=== PATIENT | male | born 1980 | race Caucasian/White ===

== ENCOUNTER 2020-07-22 11:00 | Day surgery (SDC) | payer OTHER, SELFPAY ==
[2020-07-22] VITALS (9 sets, daily range): BP systolic 112–154; BP diastolic 75–104; PULSE 77–102; RESP 12–20; TEMP 36.4–36.8; O2SAT 98–100
--- NOTE | ~2020-07-22 | CT_ITS ---
EXAMINATION: CT abdomen pelvis w con DATE: 07/22/2020 12:15 INDICATION: Right-sided abdominal pain. TECHNIQUE: Computed tomography (CT) of the abdomen and pelvis was performed with 100 mL Omnipaque 350 intravenous contrast. Automated exposure control and iterative reconstruction technique were employe d. The dose-length product was 398.01 mGy-cm. COMPARISON: None. FINDINGS: The visualized portions of the lung bases demonstrate mild atelectasis. No pleural effusion . The heart size is normal. No pericardial effusion. The liver, gallbladder, spleen, pancreas, adrena l glands, and left kidney are normal. There is a 7 mm cyst in right kidney. The appendix is fluid-cristhian led and dilated to 12 mm with surrounding fat stranding, consistent with appendicitis. There is trace ascites in the right paracolic gutter. There are no pathologically enlarged lymph nodes. There is mi ld lumbar spondylosis. IMPRESSION: 1. Acute appendicitis. I called this result to Dr. Flores. Reviewed, dictated and finalized at location A. [employer]PECT[employer]
[2020-07-22 11:45] LABS: Basophils Percent Auto 0.2 % (0.2-1.2); Eosinophils Absolute Auto 0.4 K/mm3 (0-0.3); Eosinophils Percent Auto 3.4 % (0-4.4); Hemoglobin 15.2 g/dL (14.0-18.0); Immature Granulocyte Absolute 0.03 K/mm3 (0.00-0.031); Immature Granulocyte Percent A 0.3 % (0-0.5); Lymphocytes Absolute Auto 2.03 K/mm3 (0.9-3.2); Lymphocytes Percent Auto 18.4 % (18.3-44.2); Mean Corpuscular HGB Conc 33.8 g/dl (32-36); Mean Corpuscular Hemoglobin 31.9 pg (26-34); Mean Corpuscular Volume 94.5 fl (80-100); Mean Platelet Volume 9.7 fl (7.4-10.4); Monocytes Absolute Auto 0.8 K/mm3 (0.1-0.6); Monocytes Percent Auto 7.6 % (2.6-8.5); Neutrophils Absolute Auto 7.8 K/mm3 (1.3-6.7); Neutrophils Percent Auto 70.1 % (45.5-73.1); Platelet Count Result 233 k/mm3 (150-375); Red Blood Count 4.76 M/mm3 (4.6-6.20); Red Cell Distribution Width 12.7 % (11.5-14.5)
[2020-07-22 11:48] LABS: Add Urine Microscopic? NO; Appearance Urine Clear (Clear); Bilirubin Urine Negative (Negative); Blood Urine Negative (Negative); Color Urine Yellow (Yellow); Glucose Urine UA Negative (Negative); Ketones Urine Negative (Negative); Leukocyte Esterase Ur Negative LEU/UL (Negative); Nitrate Urine Negative (Negative); Protein Urine Negative (Negative); Specific Grav Ur 1.012 (1.001-1.035); Urobilinogen Urine Negative mg/dL (<2.0)
[2020-07-22 11:57] LABS: Alanine Aminotransferase 20 U/L (4-50); Albumin Level 4.3 g/dL (3.5-5.1); Alkaline Phosphatase 91 U/L (38-126); Anion Gap 3 mmol/L (8-16); Aspartate Amino Transferase 22 U/L (17-59); Blood Urea Nitrogen 12 mg/dL (9-20); Calcium 9.6 mg/dL (8.4-10.2); Carbon Dioxide 30 mmol/L (22-30); Chloride 104 mmol/L (98-107); Estimated CRCL calculation 72 ml/min; Estimated Glomerular Filt Rate > 60; Glucose 84 mg/dL (75-110); Lipase 34 U/L (23-300); Potassium 4.2 mmol/L (3.4-5.0); Sodium 137 mmol/L (137-145)
--- NOTE | 2020-07-22 12:06 | ED.GENADULT ---
HPI - General Adult General Chief complaint: Abdominal Pain Stated complaint: ABD pain x 4 days Time Seen by Provider: 07/22/20 11:10 Source: patient History of Present Illness HPI narrative: Patient is a 40 y/o male complaining of right lower abdominal pain starting 4 days ago. He describes his pain as sharp. He states that taking Ibuprofen helps slightly. He also states that raising his leg aggravates his pain. There is no pain radiation. He has no vomiting, diarrhea, dysuria or hematuria. Related Data Allergies Allergy/AdvReac Type Severity Reaction Status Date / Time No Known Allergies Allergy Verified 07/22/20 13:42 Review of Systems Constitutional: Constitutional: Denies chills, Denies fever(s), Denies headache(s) and Denies weakness Eyes: Eyes: Denies blurry vision ENT: Denies headache(s) and Denies neck pain Cardiovascular: Cardiovascular: Denies chest pain and Denies dyspnea Respiratory: Respiratory: Denies cough and Denies dyspnea Gastrointestinal: Gastrointestinal: Reports abdominal pain, Denies diarrhea, Denies nausea and Denies vomiting Genitourinary: Genitourinary: Denies hematuria and Denies dysuria Musculoskeletal: Musculoskeletal: Denies back pain and Denies neck pain Neurologic: Denies headache(s) and Denies weakness PMFSH Past Medical History Medical History No pertinent past medical history Surgical History Surgical History History of vasectomy Family History Family History Other No family history of disorders Social History Social History Social History: Wishes to be a full code. 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 Gender identity (if verbalized by the patient): Male Sexual Orientation (if Verbalized by the Patient): Straight or Heterosexual Exam Const: General: no acute distress and well developed Orientation/consciousness: oriented to person, oriented to place, oriented to time and patient oriented x3 HENMT: Head: normocephalic Ears: external ears normal General nose exam: Normal external nose present Eyes: General: appearance normal, both eyes and all related structures Conjunctivae: conjunctivae normal Neck: Neck: normal visual inspection and full ROM Chest: Chest palpation & inspection: normal inspection of the chest and no tenderness Resp: Effort & Inspection: normal respiratory effort Auscultation: clear to auscultation bilaterally Cardio: Rate: regular rate Rhythm: regular rhythm GI: GI Palp: Yes abdominal tenderness (right lower abdomen) and Yes Soft to palpation Skin: General skin exam: normal color and turgor normal Neuro: General: oriented to person, oriented to place, oriented to time and patient oriented x3 Cognition (Neuro): normal cognition Extrem: General: normal to inspection, full ROM and no pedal edema Psych: Appearance: grossly normal Mental Status: mental status grossly normal Affect: normal affect Course Consultations Consultation #1: Discussed with Dr. Abad, who recommends IV antibiotics do surgery soon. Date: 07/22/20 Time: 12:24 Vital Signs Vital signs: Vital Signs Temperature 36.5 C 07/22/20 11:13 Pulse Rate 94 07/22/20 11:13 Respiratory Rate 20 07/22/20 11:13 Blood Pressure 143/104 H 07/22/20 11:13 Pulse Oximetry 100 07/22/20 11:13 Temperature 36.4 C L 07/22/20 15:41 Pulse Rate 81 07/22/20 17:05 Respirato
[2020-07-22] MEDS: KETOROLAC 30 MG/ML VIAL (*BKC) IV PUSH (12:26)
[2020-07-22] MEDS: SODIUM CHLORIDE 0.9% IV 1,000 ML 999 ML IV CONT (12:26)
--- NOTE | 2020-07-22 13:19 | PM.IMHP ---
H&P: HPI History of Present Illness Date/Time: 07/22/20 13:19 Chief Complaint: RLQ abdominal pain Narrative: Jori Biggs is a 40 year old male who presented to the ER with complaints of right lower quadrant abdominal pain. He reports that he gradually started having mild pain evening, 4 days ago. He noticed that into Wednesday, he started running a low grade fever of 99F, which has been intermittent since then. He reports the abdominal pain improved slightly over the weekend, but has become more severe in the past 24 hours. He reports movement and lifting his right leg aggravates his pain. Denies nausea or vomiting. Reports having a poor appetite over the past few days. Due to the continued abdominal pain, he presented to the ER for further evaluation. CT scan of the abdomen and pelvis showed a fluid-filled appendix measuring up to 12 mm in diameter with surrounding fat stranding, and trace ascites in the right paracolic gutter. Labs showed mild leukocytosis. The ER physician consulted our service for surgical evaluation of the acute appendicitis. The patient is now seen in the ER. He reports his abdominal pain is very mild when at rest and not moving. Afebrile in the ER. Denies a history of abdominal surgery. Denies any cough, congestion, sore throat, headache, or loss of taste or smell. He was tested yesterday for COVID due to his low grade fever, and was negative. Review of Systems Constitutional: Constitutional: Reports as per HPI, Reports chills, Denies fatigue, Reports fever(s), Denies headache(s) and Reports poor appetite Eyes: Eyes: Reports no additional eye complaints and Denies change in vision ENT: Reports Normal hearing present, Denies dizziness and Denies headache(s) Cardiovascular: Cardiovascular: Reports no additional cardiovascular complaints, Denies chest pain, Denies syncope and Denies leg edema Respiratory: Respiratory: Reports no additional respiratory complaints, Denies cough, Denies dyspnea and Denies wheezing Gastrointestinal: Gastrointestinal: Reports as per HPI, Reports no additional gastrointestinal complaints, Reports abdominal pain, Denies bloating, Denies change in bowel habits, Denies change in stool character, Denies constipation, Denies nausea and Denies vomiting Genitourinary: Genitourinary: Reports no additional male genitourinary complaints, Denies hematuria and Denies dysuria Musculoskeletal: Musculoskeletal: Reports no additional musculoskeletal complaints, Denies deformity, Denies joint swelling, Denies radiating pain into limb and Denies tingling Integumentary/Breasts: Skin/Breast: Denies lesions and Denies wounds Neurologic: Reports system reviewed and no additional complaints, except as documented, Reports Normal hearing present, Denies dizziness, Denies syncope, Denies tingling and Denies tremor(s) Psychiatric: Psychiatric: Denies anxiety and Denies depression [facility] Past Medical History Medical History No pertinent past medical history Surgical History Surgical History History of vasectomy Family History Family History Other No family history of disorders Social History Social History Social History: Wishes to be a full code. 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
[2020-07-22] MEDS: LACTATED RINGERS 1,000 ML 30 ML IV CONT ×2 (13:40→15:41)
--- NOTE | 2020-07-22 13:43 | WPDANESEPPF ---
Anes - Initial Pre Proc Eval Procedure: Operation Date: 07/22/20 14:30 Proposed Procedures p Laparoscopic Appendectomy - Nate Abad DO Date/Time: 07/22/20 13:43 Surgeon: Nate Abad DO Pre Op Diagnosis: ABD pain x 4 days Patient Data Age: 40 Gender: M Height: 5 ft 6 in Weight: 81.6 kg Last Vital Signs Temp 97.7 F 07/22/20 11:13 Pulse 94 07/22/20 11:13 Resp 20 07/22/20 11:13 BP 143/104 H 07/22/20 11:13 Pulse Ox 100 07/22/20 11:13 Allergies Allergy/AdvReac Type Severity Reaction Status Date / Time No Known Allergies Allergy Verified 07/22/20 13:42 Home Medications Medication Instructions Recorded Confirmed Type No Home Medications 07/22/20 07/22/20 History Laboratory Tests 07/22/20 07/22/20 07/22/20 11:27 11:27 11:27 WBC 11.0 K/mm3 H K/mm3 (4.5-10.0) RBC 4.76 M/mm3 M/mm3 (4.6-6.20) Hgb 15.2 g/dL g/dL (14.0-18.0) Hct 45.0 % % (42.0-52.0) MCV 94.5 fl fl (80-100) MCH 31.9 pg pg (26-34) MCHC 33.8 g/dl g/dl (32-36) RDW 12.7 % % (11.5-14.5) Plt Count 233 k/mm3 k/mm3 (150-375) MPV 9.7 fl fl (7.4-10.4) Immature Gran % (Auto) 0.3 % % (0-0.5) Neut % (Auto) 70.1 % % (45.5-73.1) Lymph % (Auto) 18.4 % % (18.3-44.2) [place] % (Auto) 7.6 % % (2.6-8.5) Eos % (Auto) 3.4 % % (0-4.4) Baso % (Auto) 0.2 % % (0.2-1.2) Lymph # (Auto) 2.03 K/mm3 K/mm3 (0.9-3.2) [place]ies # (Auto) 0.8 K/mm3 H K/mm3 (0.1-0.6) Eos # (Auto) 0.4 K/mm3 H K/mm3 (0-0.3) Baso # (Auto) 0.0 K/mm3 K/mm3 (0.0-0.1) Abs Immat Gran (auto) 0.03 K/mm3 K/mm3 (0.00-0.031) Absolute Neuts (auto) 7.8 K/mm3 H K/mm3 (1.3-6.7) Absolute Nucleated RBC 0.0 K/mm3 K/mm3 (0.0-0.012) Nucleated RBC % 0.0 % % (0.0-0.2) Sodium 137 mmol/L mmol/L (137-145) Potassium 4.2 mmol/L mmol/L (3.4-5.0) Chloride 104 mmol/L mmol/L (98-107) Carbon Dioxide 30 mmol/L mmol/L (22-30) Anion Gap 3 mmol/L L mmol/L (8-16) BUN 12 mg/dL mg/dL (9-20) Creatinine 1.10 mg/dL mg/dL (0.7-1.3) Estim Creat Clear Calc 72 ml/min ml/min Estimated GFR > 60 (59 - ) Glucose 84 mg/dL mg/dL (75-110) Calcium 9.6 mg/dL mg/dL (8.4-10.2) Total Bilirubin 1.0 mg/dL mg/dL (0.2-1.3) AST 22 U/L U/L (17-59) ALT 20 U/L U/L (4-50) Alkaline Phosphatase 91 U/L U/L (38-126) Total Protein 8.0 g/dL g/dL (6.3-8.2) Albumin 4.3 g/dL g/dL (3.5-5.1) Lipase 34 U/L U/L (23-300) Urine Color Yellow (Yellow) Urine Appearance Clear (Clear) Urine pH 6.0 (5.0-9.0) Ur Specific [place] 1.012 (1.001-1.035) Urine Protein Negative mg/dL mg/dL (Negative) Urine Glucose (UA) Negative mg/dL mg/dL (Negative) Urine Ketones Negative mg/dL mg/dL (Negative) Ur Blood (Man) Negative (Negative) Urine Nitrate Negative (Negative) Urine Bilirubin Negative (Negative) Urine Urobilinogen Negative mg/dL mg/dL (<2.0) Leukocyte Esterase Rfl Negative DEVIKA/UL DEVIKA/UL (Negative) Patient hx anesthesia problems: none Family hx anesthesia problems: none PMFSH Past Medical History Medical History No pertinent past medical history Surgical History Surgical History History of vasectomy Family History Family History Other No family history of disorders Social History Social History (Reviewed 07/22/20 @ 13:37 by Sarah Chacon
--- NOTE | 2020-07-22 14:02 | WPDHPUPDATE1 ---
History and Physical Update Update Date/Time: 07/22/20 14:02 History and Physical has been reviewed, including an updated exam of the patient. There are NO changes in the patient's condition. Risks, benefits, and alternatives have been discussed and questions answered. Patient agrees to proceed with procedure.
[2020-07-22] MEDS: BUPIVACAINE/EPINEPHRINE 0.5% 30 ML VIAL INFILTRATE (15:17)
--- NOTE | 2020-07-22 15:31 | PM.PROC ---
Procedure Note - Detailed Date of procedure: 07/22/20 Pre-op diagnosis: Acute appendicitis Post-op diagnosis: same Procedure performed: Laparoscopic Appendectomy Description of procedure: Procedure as well as risks, benefits, and alternatives were explained to the patient. The patient agreed to proceed. Written consent was obtained and placed in chart prior to procedure. The patient was brought back to surgical suite. He was placed supine on operating table. Time-out was done to confirm the patient and procedure. The patient was then intubated by the Anesthesia Department. His abdomen was prepped and draped in sterile fashion using chlorhexidine prep. A 12 mm incision was made at the inferior portion of the umbilicus. Blunt dissection was carried out down to the linea alba. The linea alba was then incised using a 15 blade scalpel. Then bluntly entered into the peritoneal cavity. A 12 mm trocar was then inserted, and carbon dioxide insufflation was used to create a pneumoperitoneum. The camera was inserted and the abdomen was inspected. No immediate abnormalities were identified. The patient was then placed in slight Trendelenburg position and rotated to the left. A 5 mm incision was made in the suprapubic region in midline and a 5 mm trocar was inserted under direct visualization. A 5 mm incision was made in the left lower quadrant and a 5 mm trocar was inserted under direct visualization. The right lower quadrant was carefully inspected. The cecum was identified and then this was traced back to the appendix. The appendix was identified and grasped at the mesoappendix and lifted anteriorly. Careful blunt dissection was carried out at the base of the appendix through the mesoappendix using a [place] grasper. An Endo-AKANKSHA 45 mm blue load stapler was then advanced across the base of the appendix and clamped and fired. A white reload was then clamped across the mesoappendix and fired. This freed up our appendix completely. It was then placed in an EndoCatch bag and removed through the left lower quadrant port. The staple lines were then inspected. Hemostasis appeared adequate and the staple lines appeared secure. The area was then irrigated with sterile saline. The pelvis was then carefully inspected and irrigated with sterile saline as well and the remainder of the abdomen was carefully inspected. The patient was then flattened out in bed. One final inspection was made around the abdominal cavity and no other abnormalities were seen. The ports were then removed under direct visualization. The camera was removed and the pneumoperitoneum was released. The fascia of the umbilical incision was reapproximated using an 0 Vicryl [id number]-eitim suture. 0.5% bupivacaine with epinephrine was infiltrated locally around each of the incisions. The skin of the incisions was then approximated using 4-0 Monocryl subcuticular suture and Exofin glue was applied on top. The patient was then awakened from anesthesia, extubated, and transferred to Recovery. Anesthesia: GETA and local (0.5% bupivicaine with epi) Surgeon: Nate Abad DO Estimated blood loss (mL): 20 Pathology: yes (Appendix) Complications: No immediate complications Condition: stable Disposition: same day Findings: This is a 40-year-old man who presented to the emergency department today with right lower quadrant pain that began 4 days ago. His pain has progressively worst and he was also feeling some fevers and chills. He has never experienced pains like this in the past. In the emergency department he was noted to have an elevated white blood count and CT showed evidence of acute appendicitis. Discussions were made with the patient about treatment options and decision was made to proceed with laparoscopic appendectomy, possible open. Laparoscopic appendectomy was performed. The appendix appeared dilated and indurated. There is no clear evidence of perforation but the appendix did ap
[2020-07-22] MEDS: fentaNYL CITRATE INJ (*CRX) 100 MCG/2 ML VIAL 25 MCG IV PUSH (15:50)
--- NOTE | 2020-07-22 16:17 | SUR.PHASEI ---
02 removed at 1555.
[2020-07-22] MEDS: oxyCODONE HCL (*CRX) 5 MG TAB IR PO (16:39)
== END 2020-07-22 17:10 | disposition home or self-care (01) ==
LOC: ANHED 12:36 → ANHSURGERY 12:57
PROVIDERS: Emergency Provider Emergency Medicine; Visit Provider Surgery
PROC: 0DTJ4ZZ Resection of Appendix, Percutaneous Endoscopic Approach (ICD-10-PCS; CPT 44970; principal; 2020-07-22 14:30)
DX: K35.32 Acute appendicitis with perforation, localized peritonitis, and gangrene, without abscess (principal); F17.210 Nicotine dependence, cigarettes, uncomplicated
CPT/HCPCS: 44970; 36415; 74177; 80053; 81003; 83690; 85025; 88304; 96365; 96375; 99285; A9270; J0330; J1100; J1885; J2250; J2405; J2543; J2704; J3010; J7030; J7120; Q9967

== ENCOUNTER 2022-11-05 08:07 | Emergency (ER) | payer BC, SELFPAY ==
--- NOTE | 2022-11-05 08:13 | ED.SKABFB ---
HPI - Skin/Abscess/Foreign Bdy General Chief complaint: Skin/Abscess/Foreign Body Stated complaint: Hives all over Time Seen by Provider: 11/05/22 08:14 Source: patient Mode of arrival: ambulatory Limitations: no limitations History of Present Illness HPI narrative: Jori is a 42-year-old male patient presenting to the clinic today with complaints of hives all over his body times 2-3 weeks. He reports no known environmental changes, lotions, shampoos, detergents, foods, or medications. He reports he thought he had a dental infection approximately 1 week ago and thought this could be causing the rash. States the rash is raised and very itchy. He denies any shortness of breath, drooling, difficulty breathing, difficulty swallowing, or chest pain. Related Data Allergies Allergy/AdvReac Type Severity Reaction Status Date / Time No Known Allergies Allergy Verified 11/05/22 08:21 Review of Systems Review of Systems: Pertinent positives per HPI. Patient denies any fever, chills, headache, visual changes, dizziness, cough, runny nose, sore throat, shortness of breath, chest pain, palpitations, nausea, vomiting, diarrhea, constipation, abdominal pain, or any urinary issues. [facility] Past Medical History Medical History No pertinent past medical history Surgical History Surgical History History of laparoscopic appendectomy History of vasectomy Family History Family History Other No family history of disorders Social History Social History Social History: Wishes to be a full code. 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 There is no relevant family history pertinent to the patient complaint. Exam Narrative: General: Well-developed, well nourished, in no apparent distress Head: Normocephalic, atraumatic. Eyes: Pupils equally round and reactive to light bilaterally, EOM intact, sclera and conjunctive clear, no discharge, lids normal Ears: TMs intact and clear, ear canals clear, no drainage, grossly hearing normal. Nose: Nares patent, no discharge, no inflammation, no sinus tenderness. Mouth: Oropharynx without lesions or masses, poor dentition dentition, MMM. Redness and swelling to the left upper and right upper gums with tenderness to palpation Neck: Supple, trachea midline, no enlargement of anterior or posterior cervical nodes, no thyroid masses or goiter palpable. Cardio: Regular rate and rhythm, s1 and s2 normal, no murmur appreciated. Resp: Clear to auscultation bilaterally anteriorly and posteriorly, no rhonchi, rales, wheezing or rubs Integumentary: [place], warm, and dry, red, raised, itchy, wheeled like rash to arms, legs, and torso Course Course Emergency Course: Portions of this record may have been created with voice recognition software. Level of Care: Express Care Visit Vital Signs Vital signs: Vital signs reviewed MDM - Skin/Abscess/Foreign Bdy MDM Narrative Medical decision making narrative: At the time of visit patient is resting comfortably on exam table. I suspect patient has hives. Will give dexamethasone 10 mg IM in the
[2022-11-05 08:18] VITALS: BP 133/99; PULSE 88; RESP 16; TEMP 36.8; O2SAT 100
== END 2022-11-05 08:41 | disposition home or self-care (01) ==
PROVIDERS: Emergency Provider Nurse Practitioner Family; PCP Family Medicine Adolescent Medicine
DX: L50.9 Urticaria, unspecified (principal); K08.89 Other specified disorders of teeth and supporting structures; F17.210 Nicotine dependence, cigarettes, uncomplicated
CPT/HCPCS: 96372; 99213; G0463; J1100

== ENCOUNTER 2022-11-11 16:59 | Emergency (ER) | payer BC, SELFPAY ==
--- NOTE | 2022-11-11 17:06 | ED.SKABFB ---
HPI - Skin/Abscess/Foreign Bdy General Chief complaint: Skin/Abscess/Foreign Body Stated complaint: Hives Time Seen by Provider: 11/11/22 17:26 Source: patient and RN notes reviewed Mode of arrival: ambulatory Limitations: no limitations History of Present Illness HPI narrative: 42-year-old male presents with concern for ongoing hives. Reports 6 days ago he was here for hives, was given shot of steroid was placed on 5 days of prednisone. Reports he has also been taking Zyrtec, Doris, Pepcid. He reports over the last several days the hives started coming back. He reports he is finished with the prednisone and he is having hives like they were before he started the prednisone. He reports a scratchy throat today. He denies swollen lips, swollen tongue, trouble breathing. He denies known triggers. He reports he has an appointment with his primary care doctor on November 20 complaint: rash Related Data Allergies Allergy/AdvReac Type Severity Reaction Status Date / Time No Known Allergies Allergy Verified 11/05/22 08:21 Review of Systems Review of Systems: CONSTITUTIONAL: Denies malaise, chills, sweats, or fever. EYES: Denies redness, or discharge. ENT: Denies rhinorrhea, congestion, swollen lips, swollen tongue. Reports scratchy throat CARDIOVASCULAR: Denies chest pain, palpitations, or edema. RESPIRATORY: Denies cough or dyspnea. GASTROINTESTINAL: Denies abdominal pain, nausea, vomiting SKIN: Reports generalized itchy rash MUSCULOSKELETAL: Denies joint pain or myalgia. NEUROLOGIC: Denies headache. All systems reviewed & are unremarkable except as noted in HPI and below PMFSH Past Medical History Medical History No pertinent past medical history Surgical History Surgical History History of laparoscopic appendectomy History of vasectomy Family History Family History Other No family history of disorders Social History Social History Social History: Wishes to be a full code. 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 There is no relevant family history pertinent to the presenting complaint Exam Narrative: GENERAL: Well-appearing, well-nourished, and in no acute distress. HEAD: Normocephalic, atraumatic. EYES: PERRLA, conjunctivae clear, and EOMI. ENT: Mucous membranes moist. Oropharynx without edema, erythema or lesions. NECK: Supple. No lymphadenopathy CHEST: Clear to auscultation. No respiratory distress. HEART: Regular rate and rhythm. SKIN: Warm, dry. Urticarial rash noted on bilateral arms legs NEURO: Alert and oriented x3. PSYCH: Normal mood and affect Course Course Emergency Course: Patient is aware of diagnosis, understands and agrees to treatment plan. Anticipatory guidance given. Patient agrees to follow-up as directed and is aware of reasons to seek care at the emergency department. Portions of this record may have been created with voice recognition software Level of Care: Express Care Visit Vital Signs Vital signs: Reviewed. MDM - Skin/Abscess/Foreign Bdy MDM Narrative Medical decision making narrative: Does not appear at this time to be erythema
[2022-11-11 17:08] VITALS: BP 133/95; PULSE 94; RESP 12; TEMP 37.1; O2SAT 97
== END 2022-11-11 17:41 | disposition home or self-care (01) ==
PROVIDERS: Emergency Provider Nurse Practitioner
DX: L50.9 Urticaria, unspecified (principal); F17.210 Nicotine dependence, cigarettes, uncomplicated
CPT/HCPCS: 99213; G0463